=== PATIENT | female | born 1965 | race Caucasian/White ===

== ENCOUNTER 2022-09-06 09:03 | Outpatient (CLI) | payer BC, SELFPAY ==
[2022-09-06 14:37] LABS: Albumin* 4.4 g/dL (3.3-5.0)
[2022-09-06 14:38] LABS: Chloride* 107 mmol/L (96-114); Potassium* 4.4 mmol/L (3.6-5.1); Sodium* 142 mmol/L (135-149)
[2022-09-06 14:40] LABS: Carbon Dioxide* 30 mmol/L (20-32); Cholesterol* 213 mg/dL (90-199); Creatinine* 0.8 mg/dL (0.5-1.5); Estimated Glomerular Filt Rate 87 ml/min
[2022-09-06 14:41] LABS: Alanine Aminotransferase* 27 U/L (4-35); Alkaline Phosphatase* 53 U/L (40-150); Aspartate Amino Transferase* 25 U/L (12-35); Bilirubin Total* 0.4 mg/dL (0.1-1.5); Blood Urea Nitrogen* 20 mg/dL (7-30); Calcium* 9.2 mg/dL (8.4-10.6); Glucose* 93 mg/dL (60-115); HDL Cholesterol* 56 mg/dL (>=50); LDL Cholesterol Calculated 120 mg/dL (<100); Total Protein* 6.7 g/dL (6.0-8.3); Triglycerides* 184 mg/dL (40-149)
== END 2022-09-06 09:04 | disposition home or self-care (01) ==
PROVIDERS: PCP Physician Assistant Medical; Visit Provider Physician Assistant Medical
DX: Z01.419 Encounter for gynecological examination (general) (routine) without abnormal findings (principal); E03.9 Hypothyroidism, unspecified; E78.00 Pure hypercholesterolemia, unspecified; I10 Essential (primary) hypertension
CPT/HCPCS: 80053; 80061; 84443

== ENCOUNTER 2022-12-25 18:11 | Outpatient (CLI) | payer BC, SELFPAY ==
--- NOTE | 2022-12-25 18:30 | CRLHL7_ITS ---
For Patients: As a result of the Cures Act, medical imaging exams and procedure reports are released immediately into your electronic medical record. You may view this report before your referring provider. If you have questions, please contact your health care provider. BILATERAL SCREENING MAMMOGRAM WITH COMPUTER-AIDED DETECTION AND TOMOSYNTHESIS TECHNIQUE: CC and MLO views were obtained. These mammographic images have been obtained using full-field digital technique. These mammographic images were interpreted with the benefit of computer-aided detection. Breast tomosynthesis was used in this interpretation. COMPARISON FILM: 11/06/21, 07/29/20, 06/23/19. FINDINGS: There are scattered areas of fibroglandular density. IMPRESSION: There is no radiographic evidence for malignancy. ASSESSMENT: BI-RADS Category 2: Benign RECOMMENDATION: Routine screening mammogram in 1 year. A lay language report of this examination will be provided to the patient. LYN ARANA M.D. Diagnostic/Breast Radiologist [email or web address] Transcribed: 12/26/2022, 2:[address]/Dictated by: Lyn Arana MD @ 12/26/2022 8:18:00 AM (Electronically Signed)
== END 2022-12-25 18:12 | disposition home or self-care (01) ==
LOC: MAMMO 18:12
PROVIDERS: PCP Physician Assistant Medical; Visit Provider Physician Assistant Medical
DX: Z12.31 Encounter for screening mammogram for malignant neoplasm of breast (principal)
CPT/HCPCS: 77063; 77067

== ENCOUNTER 2023-08-27 07:52 | Outpatient (CLI) | payer BC, SELFPAY | END 2023-08-27 07:53 | disposition home or self-care (01) | PROVIDERS: PCP Physician Assistant Medical; Visit Provider Physician Assistant Medical | DX: Z00.00 Encounter for general adult medical examination without abnormal findings (principal); E03.9 Hypothyroidism, unspecified; I10 Essential (primary) hypertension; E78.00 Pure hypercholesterolemia, unspecified | CPT/HCPCS: 80053; 80061; 84443 ==

== ENCOUNTER 2023-12-26 15:56 | Outpatient (CLI) | payer BC, SELFPAY | END 2023-12-26 15:57 | disposition home or self-care (01) | LOC: FRMREF 15:57 | PROVIDERS: PCP Physician Assistant Medical; Visit Provider Physician Assistant Medical | DX: Z78.0 Asymptomatic menopausal state (principal) | CPT/HCPCS: 83001 ==

== ENCOUNTER 2023-12-27 14:41 | Outpatient (CLI) | payer BC, SELFPAY ==
--- NOTE | 2023-12-27 15:00 | MM_ITS ---
Patient: NEHAL ELLIOTT Facility:?[facility] Patient ID:?[id number] Site Patient ID:?[id number]. Site :?[id number] Study:?XRay-Breast Bilateral 3D W/CAD-12/27/2023 3:07:35 PM Ordering Physician:Ashia Ge Final Report: BILATERAL SCREENING MAMMOGRAM WITH COMPUTER-AIDED DETECTION AND TOMOSYNTHESIS TECHNIQUE: CC and MLO views were obtained. These mammographic images have been obtained using full-field digital technique. These mammographic images were interpreted with the benefit of computer-aided detection. Breast Tomosynthesis was used in this interpretation. COMPARISON FILM: 12/25/22, 11/06/21, 07/29/20. FINDINGS: There are scattered areas of fibroglandular density IMPRESSION: There is no radiographic evidence for malignancy. ASSESSMENT: BI-RADS Category 2: Benign RECOMMENDATION: Routine screening mammogram in 1 year. A lay language report of this examination will be provided to the patient. Ted Don M.D. Diagnostic Radiologist [email or web address] Transcribed: 1:26 p.mCris valdez/Dictated by: Ted Don MD @ 12/31/2023 12:43:00 PM Signed by:?Ted Don MD @12/31/2023 1:35:00 PM (Electronic Signature)
== END 2023-12-27 14:42 | disposition home or self-care (01) ==
LOC: MAMMO 14:41
PROVIDERS: PCP Physician Assistant Medical; Visit Provider Physician Assistant Medical
DX: Z12.31 Encounter for screening mammogram for malignant neoplasm of breast (principal)
CPT/HCPCS: 77063; 77067

== ENCOUNTER 2024-01-14 16:41 | Outpatient (CLI) | payer BC, SELFPAY ==
--- NOTE | 2024-01-14 17:00 | US_ITS ---
Patient: NEHAL ELLIOTT Facility:?[facility] Patient ID:?[id number] Site Patient ID:?[id number]. Site :?[id number] Study:?US-OB Pelvis TV pelvic-01/14/2024 6:15:37 PM Ordering Physician:?Yoli Lunsford Final Report: CLINICAL HISTORY: Missing IUD string TECHNIQUE: 2D kaur scale and color Doppler images were acquired of the pelvis using a transvaginal approach. FINDINGS: On transvaginal imaging, the myometrium has a diffusely heterogeneous echotexture with multiple fibroids. A large right posterior fibroid is present which measures 9.4 x 7.6 x 9.1 cm. Left anterior fibroid is present measuring 4.1 x 3.3 x 3.0 cm. Right posterior fibroid noted at the mid uterus measuring 4.2 x 2.2 x 3.1 cm. IUD appears to be present normally within the endometrial canal. The left ovary measures 2.2 x 1.2 x 1.1 cm in size and the right ovary measures 1.8 x 1.0 x 1.1 cm. The ovaries demonstrate normal arterial and venous blood flow on color Doppler analysis. There are no suspicious fluid collections within the cul-de-sac. IMPRESSION: IUD within the endometrial canal. Fibroid uterus. Dictated by Ted Don MD @ 01/15/2024 12:14:42 PM Signed by:?Ted Don MD @01/15/2024 12:14:42 PM (Electronic Signature)
== END 2024-01-14 16:42 | disposition home or self-care (01) ==
LOC: US 16:42
PROVIDERS: PCP Physician Assistant Medical; Visit Provider Obstetrics & Gynecology
DX: T83.2 Mechanical complication of graft of urinary organ (principal); D25.9 Leiomyoma of uterus, unspecified
CPT/HCPCS: 76830

== ENCOUNTER 2024-02-11 06:01 | Day surgery (SDC) | payer BC, SELFPAY ==
--- OUTSIDE RECORDS SUMMARY | 2024-02-11 06:03 | XMS_ITS | Continuity of Care Document ---
Author Name Unknown Organization [facility] Address [address] [address] [place] [address] Phone Care Team Providers Care Medical Records Director Name Role Phone Steve Carvalho MD Unavailable Unavailabl e Allergies, Adverse Reactions, Alerts Substance Reaction Status Criticality No Known allergies Medications Medication Instructions Dosage Effective Dates (start - stop) Status Comments hydrochlorothiazide 25 mg tablet take 1 Tablet by ORAL route every day 25 MG - Active Synthroid 112 mcg tablet take 1 tablet b y oral route every day 112 MCG - Active Zyrtec 10 mg Tab Take 1 tablet by mouth daily - Active Procedures Procedure Date Colonoscopy Flex; W/bx 1/mx Level Iv-surg Path Gross/micro 19 Advance Directives Directive Yes / No Effective Date File Name No Information Encounters Encounter Description Practice Location Reason(s) For Visit Diagnoses Date Provider Providers Copied on Encounter [facility] [employer] [facility], [address] [address], [place], [place], [address], [place] tel:[phone] [facility] No Information 4 Lucio Wilson. [address] [facility], [facility] [address], [place], [place], [address] , [place]. tel:[phone] [facility], [address] [address], [place], [address], [place] tel:[phone] [facility] Diarrhea, unspecified typePersonal history of colonic polypsLymphocytic colitis 9 Jovi Kramer. [address] [facility], [address], [place], [place], [address] , [place]. tel:[phone] [place]: [place], [address] [address] [place], [address]. tel:[phone] [facility], [address] [address], [place], [place], [address], [place] tel:[phone] [facility] Personal History Colon PolypsFamily Hx/Colonic PolypsPersonal History Colon PolypsFamily Hx/Colonic Polyps 7 Rojelio LUA Triny. [address] , [facility] [address], [place], [address], [place]. tel:[phone] [place]: [place], [address] [address] [place], [address]. tel:[phone] Family History Family Member Type Diagnosis Age At Onset Father Problem (finding) cancer of colon Payers Payer name Insurance type Covered constitution party ID Authoriza tieleanor(s) Preferred One Admin [facility] CI [id number] Social History Type Description Quantity Date Captured Comments Sex Female Smoking Status No Information Chief Complaint And Reason For Visit No Information Reason For Referral Reason For Referral No Information Plan Of Treatment Date Type Action Status Appointment Kristin Victoria BOOKED History Of Present Illness Encounter Date Complaint History Of Prese nt Illness No Information Functional Status Date Functional Assessmen t No Information Instructions Date Instruction Additional Infor mation No Information Assessments Type Assessment Date No Information Patient Care Teams Name Effective Dates (start - stop) Status Members No Information
--- OUTSIDE RECORDS SUMMARY | 2024-02-11 06:03 | XMS_ITS | Clinical Summary ---
Author Name Unknown Organization [facility] Address [place], [place] [address] Care Team Providers Care Mail Teller Name Role Phone Janet Ng MD Primary Care Provider [phone] Medications Medication Sig Dispensed Refills Start Date End Date Status amoxicillin-clavula kathya 875-125 mg tablet (AUGMENTIN) Take 1 tablet by mouth twice daily 56 tablet 12/05/2015 Active codeine-guaiFENesin (CHERATUSSIN AC) 10-100 mg/5 mL liquid Take 5-10 mL by mouth every 4-6 hours if needed for pain/cough. 240 mL 12/06/2015 Active bisacodyl (DULCOLAX) 5 mg tablet Take all 4 tablets at 12pm the day before your colonoscopy 4 tablet 12/07/2016 Active magnesium citrate (CITRATE OF MAG) 4 hours before your procedure drink the entire bottle of lemon magnesium citrate 296 mL 12/07/2016 Active polyethylene glycoL (MIRALAX) 17 gram/dose powder One day prior to the procedure mix 8.3oz of Miralax into 64oz of Gatorade. Beginning at 4pm, drink an 8oz glass every 15min until gone 255 g 12/07/2016 Active amoxicillin-clavula kathya 875-125 mg tablet (AUGMENTIN) Take 1 tablet by mouth two times a day for 28 days. 56 tablet 11/26/2017 Active lisinopriL (PRINIVIL; ZESTRIL) 20 mg tablet Take 1 tablet by mouth daily 90 tablet 3 09/24/2019 Active hydroCHLOROthiazide (HCTZ) 25 mg tablet Take 1 tablet by mouth once daily 90 tablet 3 09/24/2019 Active cyclobenzaprine (FLEXERIL) 10 mg tablet Take 1 tablet (10 mg) by oral route at bedtime NEEDED FOR neck stiffness 30 tablet 5 11/27/2019 Active hydroCHLOROthiazide (HCTZ) 25 mg tablet TAKE 1 TABLET BY MOUTH ONCE DAILY 90 tablet 3 08/30/2020 Active lisinopriL (PRINIVIL; ZESTRIL) 20 mg tablet TAKE 1 TABLET BY MOUTH DAILY 90 tablet 3 08/30/2020 Active levothyroxine (SYNTHROID) 112 mcg tablet Take 1 tablet daily 90 tablet 3 08/30/2020 Active hydroCHLOROthiazide 12.5 mg tablet Take 1 tablet (12.5 MG) DAILY 90 Tablet 3 09/05/2021 Active lisinopriL (PRINIVIL; ZESTRIL) 20 mg tablet Take 1 tablet (20 MG) DAILY 90 Tablet 3 09/05/2021 Active hydroCHLOROthiazide (HCTZ) 25 mg tablet Take 1 Tablet (25 mg) by mouth once daily. 90 Tablet 3 09/06/2021 Active levothyroxine (SYNTHROID) 112 mcg tablet Take 1 Tablet (112 mcg) by mouth once daily. 90 Tablet 3 09/06/2021 Active Encounters Date Type Department Care Team Description 01/21/2024 Lab Requisition [facility] [phone] Yoli Lunsford MD 12/27/2023 Lab Requisition [facility] [phone] Ashia Sawyer, PARavinderC from Last 3 Months Immunizations Name Administration Dates Next Due COVID-19 vaccine ([employer] 30mcg/0.3mL) COLTON Anders 10/17/2020,09/26/2020 Family History Medical History Relation Name Comments Cancer-breast Other great grandmother 90+ Cancer-ovarian No Family History Relation Name Status Comments Other great grandmother Social History Tobacco Use Types Packs/Day Years Used Date Smoking Tobacco: Never Assessed Social Connections Answer Date Recorded Frequency of Communication with Friends and Fami ly Not on file 09/30/2021 Financial Resource Strain Answer Date R ecorded Difficulty of Paying Living Expenses Not on file 09/30/2021 Difficulty of Paying Living Expenses Not on file 09/30/2021 Sex and Gender Information Value Date Recorded Sex Assigned at Not on file Gender Identity Not on file Sexual Orientation Not on file Obstetrics History Plan of Treatment Not on file Procedures Procedure Name Priority Date/Time Associated Diagnosis Comments LAB TRACKING EVENT Routine 01/20/2024 1: 30 PM CDT PATH TISSUE EXAM Routine 01/20/2024 1:30 PM CDT LAB TRACKING EVENT Routine 12/26/2023 3: 45 PM CDT VP COMPLIANCE THIN PREP PAP SCREEN IMAGED Routine 12/26/2023 3:45 PM CDT HPV THIN PREP Routine 12/26/2023 3:45 PM CDT from Last 3 Months Results * LAB TRACKING EVENT (01/20/2024 1:30 PM CDT) Only the most recent of2 resultswithin the time period is included. Other (Other) Client Collect / Unknown 01/20/2024 1:30 PM CDT 01/21/2024 3:25 PM CDT Yoli Lunsford MD LAB BILL ONLY [facility] [address] [place] [address], * PATH TISSUE EXAM (01/20/2024 1:30 PM CDT) Case Report Pathology Report ?Case: [id number] ? Authorizing Provider: ??Yoli Lunsford MD ??Collected: ? 01/20/2024 1330 ? Ordering Location: ? [facility] ?Received: ?01/21/2024 1621 ? Pathologist: ? Radha Dorsey MD ? Specimen: ?Endometrial Biopsy ? 01/24/2024 9:19 AM [email or web address] Final Diagnosis A) ENDOMETRIUM, BIOPSY: 1. Inactive endometrium with reactive changes and chronic endometritis, consistent with the presence of an intrauterine device 2. Areas of stromal collagenization are also favored to represent IUD effect 3. Negative for hyperplasia, atypia, and malignancy in this sample 4. See comment 01/24/2024 9:19 AM [facility] Comment The biopsy demonstrates fragments of inactive endometrial tissue with stromal and glandular reactive changes as well as chronic endometritis, consistent with reaction to an IUD. ??Alternatively, chronic endometritis may be due to a variety of causes, including infections, pelvic radiotherapy, submucosal leiomyomas, or endometrial polyps. Despite the wide spectrum of etiologies, more than a third of cases of chronic endometritis are idiopathic. This case demonstrates areas of unusual stromal collagenization associated with stromal progestin effect. ??This is favored to also represent a chronic inflammatory response to a longstanding IUD, but such changes can be seen in the context of an old placental implantation site/retained mummified placental tissue or occasionally in infarcted endometrial polyps. ??Please correlate with hysteroscopic impression to determine if further sampling is needed. Case seen in consultation with Dr. Ugarte. 01/24/2024 9:19 AM [email or web address] Clinical Information Fibroid uterus by ultrasound Hysteroscopy for IUD removal. IUD not removed - polyps seen. 01/24/2024 9:19 AM CDT [facility] Gross Description A) Received in formalin, labeled with the patient's name and date of , is a 3.0 x 1.5 x 0.3 cm aggregate of pink-gore mucosa admixed with clotted blood and mucous. The specimen is entirely submitted in 1 cassette. TLF 01/21/2024 01/24/2024 9:19 AM CDT [facility] Microscopic Description The final diagnosis is based on microscopic examination of appropriate sections of all specimens. 01/24/2024 9:19 AM CDT [facility] Additional Information Interpreted at [facility] - [address] [place] [address] 01/24/2024 9:19 AM CDT [facility] Other (Endometrial Biopsy) 01/20/2024 1:30 PM CDT 01/21/2024 4:21 PM CDT Yoli Lunsford MD PATHOLOGY/CYTOLO GY [facility] [address] [place] [address], * VP COMPLIANCE THIN PREP PAP SCREEN IMAGED (12/26/2023 3:45 PM CDT) Case Report Gynecologic Cytology Report ? Case: [id number] ? Authorizing Provider: ??Ashia Sawyer PA-C ? Collected: ? 12/26/2023 1545 ? Ordering Location: ? [facility] ?Received: ?12/30/2023 0918 ? First Screen: ?Juliann Ellison ? Rescreen: ?Nicole James ? Specimen: ?VP COMPLIANCE ThinPrep Vial Screening, Cervical/Vaginal ? 01/08/2024 2:29 PM CDT [facility] INTERPRETATION/ RESULT NEGATIVE FOR INTRAEPITHELIAL LESION OR MALIGNANCY (NIL) (none) 01/08/2024 2:29 PM CDT [facility] IMEN ADEQUACY Satisfactory for evaluation No endocervical component seen 01/08/2024 2:29 PM CDT [facility] HPV REQUEST HPV and PAP 01/08/2024 2:29 PM CDT [facility] Last Pap Date 09/24/2019 01/08/2024 2:29 PM CDT [facility] Last Pap Result NIL 2:29 PM CDT [facility] Abnormal Pap or [place] Bx in last 5 years No 01/08/2024 2:29 PM CDT [facility] Menstrual Status Hormonally Suppressed 01/08/2024 2:29 PM CDT [facility] Comment:IUD [place] Bx Done Today No 01/08/2024 2:29 PM CDT [facility] Additional Information 01/08/2024 2:29 PM CDT [facility] Comment: Interpreted at [facility] - [address] [facility] [address], [place] [address] Automated Review Successful 01/08/2024 2:29 PM CDT [facility] Comment:Specimen processed s uccessfully by automated parts counter associate device, nap- Naturally Attached ParentsPrep Imaging System, [employer] ANCILLARY TESTING VP COMPLIANCE HPV Ordered, Please see separate report 01/08/2024 2:29 PM CDT [facility] Note The pap test is a screening technique, not a diagnostic procedure. It is used primarily to screen for squamous cancers and precursor lesions. Published studies have shown that it is subject to both false negative and false positive results. The pap test should not be used as the sole means to diagnose or exclude pre-malignant and malignant lesions. 01/08/2024 2:29 PM CDT [facility] Other (Cervical/Vagina l) 12/26/2023 3:45 PM CDT 12/30/2023 9:18 AM CDT Ashia Sawyer PA-C PATHOLOGY/CYTOLOGY [facility] [address] [place] [address], * HPV HIGH RISK (12/26/2023 3:45 PM CDT) TYPE 16 Negative Negative 01/01/2024 11:09 AM CDT [facility] TYPE 18 Negative Negative 01/01/2024 11:09 AM CDT [facility] OTHER HIGH RISK TYPES Negative Negative 01/01/2024 11:09 AM CDT [facility] Other (Cervical/Vagina l) 12/26/2023 3:45 PM CDT 12/30/2023 9:18 AM CDT Narrative [facility] - 01/01/2024 11:09 AM CDT HPV types 16, 18, 31, 33, 35, 39, 45, 51, 52, 56, 58, 59, 66 and 68 DNA were undetectable or below the pre-set threshold. Methodology: Alisa Petra 4800 HPV Test Ashia Sawyer PA-C MICROBIOLOGY [facility] [address] [place] [address], from Last 3 Months Care Teams Mail Teller Relationship Specialty [place] [address] [address] [place], [place] [phone] PCP - General 06/05/07
--- OUTSIDE RECORDS SUMMARY | 2024-02-11 06:03 | XMS_ITS | Continuity of Care Document ---
Author Name Unknown Organization [facility] Address [address] [address] [place] [address] Phone Care Team Providers Care Clinic Lpn Name Role Phone Steve Carvalho MD Unavailable [...] Diagnoses Date Provider Providers Copied on Encounter [facility], [address] [address], [place], [place], [address], [place] tel:[phone] [facility] No Information 4 Lucio Wilson. [address] [facility], [facility] [address], [place], [place], [address] , [place]. tel:[phone] [facility], [address] [address], [place], [address], [place] tel:[phone] [facility] Diarrhea, unspecified typePersonal history of colonic polypsLymphocytic colitis 9 Jovi Kramer. [address] [facility], [address], [place], [place], [address] , [place]. tel:[phone] [place]: [place], [address] [facility] [place], [address]. tel:[phone] [facility], [address] [address], [place], [place], [address], [place] tel:[phone] [facility] Personal History Colon PolypsFamily Hx/Colonic PolypsPersonal History Colon PolypsFamily Hx/Colonic Polyps 7 Rojelio LUA Triny. [address] , [facility] [address], [place], [address], [place]. tel:[phone] [place]: [place], [address] [address] [place], [address]. tel:[phone] Family History Family Member Type Diagnosis Age At Onset Father Problem (finding) cancer of colon Payers Payer name Insurance type Covered alliance party ID Authoriza tieleanor(s) Preferred One Admin [facility] CI [id number] Social History Type Description Quantity Date Captured [...]
[2024-02-11] MEDS: LACTATED RINGERS 1000 ML 1,000 ML 100 ML IV (06:10)
[2024-02-11 06:25] VITALS: BMI 38.5
[2024-02-11 06:34] VITALS: BP 132/77; PULSE 75; RESP 16; TEMP 36.7; O2SAT 94
[2024-02-11 06:37] LABS: Ur HCG Qualitative* Negative (Negative)
[2024-02-11] MEDS: SODIUM CHLORIDE 0.9 % (FLUSH) 10 ML SYRINGE IVF (06:44)
[2024-02-11 06:49] LABS: Hemoglobin* 12.3 gm/dL (12.0-16.0)
--- NOTE | 2024-02-11 07:10 | W.PM.H&PU_ITS ---
History & Physical Update History & Physical Update H&P Reviewed and patient assessed: No changes noted H&P Updates: Kristin is seen in pre-op prior to hysteroscopy, IUD removal and dilation and curettage. She is s/p pre-op exam with Ashia Sawyer on 02/06/24. No interval health updates. Reviewed benefit of IUD removal and endometrial sampling today. Risks include bleeding, infection, damage to surrounding structures and medical complications of surgery/anesthesia reviewed. All questions answered. Written consent re- signed.
--- NOTE | 2024-02-11 07:15 | P.GYNPRC_ITS ---
Procedure Note Time Seen by Provider: 07:15 Date of procedure: 02/11/24 Will [facility] bill your pro fee for this procedure?: Yes Pre-op diagnosis: Lost IUD strings Fibroid uterus Suspected endometrial polyp Post-op diagnosis: Same as above Procedure: Hysteroscopy, IUD removal, dilation and curettage, polypectomy Anesthesia: MAC Complications: None Surgeon: Sal Lunsford MD Estimated blood loss (mL): 5 IV fluids (mL): 800 Urine Output (mL): 125 Pathology: specimen obtained, sent to pathology Condition: stable Disposition: same day Findings: Unremarkable external genital exam Endocervical polyp Largely inactive appearing endometrium, sessile polypoid tissue on posterior wall Unremarkable bilateral tubal ostia IUD with lost strings Procedure Description: Procedure in detail: Patient was taken to the operating room with IV running. She was positioned in dorsal lithotomy position with her legs fully supported in Yellofin stirrups. Monitored anesthesia care was administered. She was prepped and draped in the usual sterile fashion. Exam under anesthesia was performed for the above-noted findings. Speculum was inserted. Cervix visualized and grasped along the anterior lip with a single-tooth tenaculum. Paracervical block was performed with a total of 10 mL 0.5% bupivacaine. Cervix was gently dilated with os finder to accommodate the TRUCLEAR hysteroscope. This was assembled with saline inflow and outflow in place. The line was flushed of bubbles. The hysteroscope was advanced through the cervix, where the junction between endocervical canal and endometrial cavity was noted to be sharply anteverted. Small false passage was noted posteriorly, potentially from os finder to dilate. Hysteroscope was gently advanced into anteverted uterine cavity, position likely altered to known fibroid uterus. IUD and strings were readily apparent, where strings hysteroscopic grasper was utilized to grab strings and the hysteroscope and IUD were removed together and intact. Hysteroscope was then reinserted and carefully advanced into the endometrial cavity. The above findings were noted, where the most obvious focal anomaly was a 6mm endocervical polyp. This was noted to be branching in appearance, likely representing the lesion previously seen on office hysteroscopy. Soft tissue Truclear morcellator was advanced through hysteroscope, window lock was performed. Polypectomy was performed without difficulty under direct visualization. The posterior uterine wall was noted to have focal sessile polypoid like tissue, resected as well. Global sampling was then performed with Truclear. The hysteroscope and morcellator were then removed from the uterus. Tenaculum was removed from the anterior lip of cervix. Hemostasis was noted with gentle pressure and silver nitrate. Patient tolerated procedure well. She was taken to recovery area in stable condition. Surgical debrief performed. EBL 5mL, fluid deficit 300mL, UOP 125mL, IVF 800mL, specimen is endometrial curettings.
[2024-02-11] MEDS: BUPIVACAINE 0.5% 30 ML INJECTION (07:50)
[2024-02-11] MEDS: SILVER NITRATE APPLICATOR 1 EACH STICK..EA. TOPICAL (07:50)
[2024-02-11 08:05] VITALS: BP 115/72; PULSE 70; RESP 16; TEMP 36.5; O2SAT 92
--- NOTE | 2024-02-11 08:11 | W.ANESCHARGE ---
Anesthesia Charges Start Date/Time Anesthesia Start Date: 02/11/24 Anesthesia Start Time: 07:21 Stop Date/Time Anesthesia Stop Date: 02/11/24 Anesthesia Stop Time: 08:07
[2024-02-11 08:15] VITALS: BP 122/74; PULSE 70; RESP 16; O2SAT 92
[2024-02-11 08:30] VITALS: BP 106/71; PULSE 72; RESP 16; O2SAT 96
[2024-02-11 08:45] VITALS: BP 110/77; PULSE 74; RESP 16; O2SAT 96
[2024-02-11 09:00] VITALS: BP 112/80; PULSE 72; RESP 16; O2SAT 96
--- NOTE | 2024-02-11 10:16 | W.ANESCHARGE ---
Anesthesia Charges Start Date/Time Anesthesia Start Date: 02/11/24 Anesthesia Start Time: 07:21 Stop Date/Time Anesthesia Stop Date: 02/11/24 Anesthesia Stop Time: 08:07
== END 2024-02-11 09:15 | disposition home or self-care (01) ==
LOC: OR 06:02
PROVIDERS: PCP Physician Assistant Medical; Visit Provider Obstetrics & Gynecology
PROC: 0UDB8ZZ Extraction of Endometrium, Via Natural or Artificial Opening Endoscopic (ICD-10-PCS; CPT 58558; principal; 2024-02-11 07:15)
DX: D25.0 Submucous leiomyoma of uterus (principal); T83.32XA Displacement of intrauterine contraceptive device, initial encounter
CPT/HCPCS: 58558; 58562; 00952; 36415; 81025; 85018; 86850; 86900; 86901; 88305; A9270; J0665; J1100; J1885; J2250; J2405; J2704; J3010; J3490; J7120

== ENCOUNTER 2024-03-19 16:15 | Outpatient (RCR) | payer BC, SELFPAY | END 2024-07-17 23:59 | disposition home or self-care (01) | PROVIDERS: PCP Physician Assistant Medical; Visit Provider Orthopaedic Surgery Sports Medicine | DX: M76.821 Posterior tibial tendinitis, right leg (principal); M25.571 Pain in right ankle and joints of right foot; Z51.89 Encounter for other specified aftercare | CPT/HCPCS: 97110; 97140; 97161 ==

== ENCOUNTER 2024-07-23 16:37 | Outpatient (CLI) | payer BC, SELFPAY ==
--- OUTSIDE RECORDS SUMMARY | 2024-07-23 16:39 | XMS_ITS | Clinical Summary ---
Author Organization [facility] Address [place], [place] [address] Care Team Providers Care Scrum Product Owner Name Role Phone Janet Ng MD Primary Care Provider + [phone] Medications Medication Sig Dispensed Refills Start Date [...] once daily. 90 Tablet 3 09/06/2021 Active Immunizations Name Administration Dates Next Due COVID-19 vaccine (Nomios 30mcg/0.3mL) COLTON Anders 10/17/2020,09/26/2020 Family History Medical [...] History Plan of Treatment Not on file Care Teams Scrum Product Owner Relationship Specialty [place] [id number] [address] [place], [place] [phone] PCP - General 06/05/07
--- NOTE | 2024-07-23 17:00 | CRLHL7_ITS ---
For Patients: As a result of the Century Cures Act, medical imaging exams and procedure reports are released immediately into your electronic medical record. You may view this report before your referring provider. If you have questions, please contact your health care provider. INDICATION: leiomyoma of uterus COMPARISON: 01/14/2024 TECHNIQUE: 2D kaur scale and color Doppler images were acquired of the pelvis using a transabdominal and transvaginal approach. FINDINGS: Left-sided exophytic fibroid measures 4.2 x 3.7 x 4.1 cm. Calcified fibroid is present within the left uterine fundus measuring 3.0 x 2.3 x 2.2 cm. Large midline fibroid measures 9.1 x 9.2 x 8.4 cm, previously measuring 9.4 x 7.6 x 9.1 cm. Uterus measures 13.3 cm in length by 10.1 cm in AP diameter by 10.9 cm in transverse dimension. The endometrium is obscured. The ovaries are not visualized. There are no suspicious fluid collections within the cul-de-sac. IMPRESSION: Multiple uterine fibroids measuring up to 9.2 cm. Dictated by Ted Don MD @ 07/24/2024 3:50:12 PM (Electronically Signed)
== END 2024-07-23 16:38 | disposition home or self-care (01) ==
LOC: US 16:38
PROVIDERS: PCP Physician Assistant Medical; Visit Provider Obstetrics & Gynecology
DX: D25.9 Leiomyoma of uterus, unspecified (principal)
CPT/HCPCS: 76830; 76856

== ENCOUNTER 2024-09-01 10:08 | Outpatient (CLI) | payer BC, SELFPAY | END 2024-09-01 10:09 | disposition home or self-care (01) | PROVIDERS: PCP Physician Assistant Medical; Visit Provider Physician Assistant Medical | DX: E03.9 Hypothyroidism, unspecified (principal); I10 Essential (primary) hypertension; E78.00 Pure hypercholesterolemia, unspecified | CPT/HCPCS: 80053; 80061; 84443 ==

== ENCOUNTER 2025-03-23 15:15 | Outpatient (CLI) | payer BC, SELFPAY ==
--- NOTE | 2025-03-23 15:40 | MM_ITS ---
Patient: NEHAL ELLIOTT Facility:?[facility] Patient ID:?[id number] Site Patient ID:?[id number]. Site :?[id number] Study:?XRay-Breast 3D Vick SCREENING-03/23/2025 4:05:19 PM Ordering Physician:Luma Ang Final Report: INDICATION: BILATERAL SCREENING MAMMOGRAM, ASYMPTOMATIC 60 Y/O FEMALE COMPARISON: 12/27/2023, 12/25/2022, 11/06/2021 TECHNIQUE: Digital mammogram in CC and MLO projections including computer-aided detection (CAD) and tomosynthesis. BREAST COMPOSITION: There are scattered areas of fibroglandular density. FINDINGS: No suspicious findings. ASSESSMENT: BI-RADS 2 Benign RECOMMENDATION: Annual screening mammogram. A lay language report of this examination will be provided to the patient. Dictated by: Ted Don MD @ 03/25/2025 10:14:15 Signed by:?Ted Don MD @03/25/2025 10:14:15 AM (Electronic Signature)
--- OUTSIDE RECORDS SUMMARY | 2025-03-24 00:48 | XMS_ITS | Clinical Summary ---
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 240 mL 12/06/2015 3:48 PM SHALE PROCESSING TECHNICIAN 6 Active bisacodyl (DULCOLAX) 5 mg tablet Take all 4 tablets at 12pm the day before your colonoscopy 4 tablet 7 Active magnesium citrate (CITRATE OF MAG) 4 hours before your procedure drink the entire bottle of lemon magnesium citrate 296 mL 7 Active polyethylene glycoL (MIRALAX) 17 gram/dose powder One day prior to the procedure mix 8.3oz of Miralax into 64oz of Gatorade. Beginning at 4pm, drink an 8oz glass every 15min until gone 255 g 7 Active amoxicillin-cla vulanate 875-125 mg tablet (AUGMENTIN) Take 1 tablet by mouth two times a day for 28 days. 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 0 Active hydroCHLOROthia zide (HCTZ) 25 mg tablet TAKE 1 TABLET BY MOUTH ONCE DAILY 90 tablet 3 05/03/2021 1:34 PM CDT 0 Active lisinopriL (PRINIVIL; ZESTRIL) 20 mg tablet TAKE 1 TABLET BY MOUTH DAILY 90 tablet 3 05/03/2021 1:34 PM CDT 0 Active levothyroxine (SYNTHROID) 112 mcg tablet Take 1 tablet daily 90 tablet 3 05/03/2021 1:34 PM CDT 0 Active hydroCHLOROthia zide 12.5 mg tablet Take 1 tablet (12.5 MG) DAILY 90 Tablet 3 06/13/2022 5:31 PM CDT 1 Active lisinopriL (PRINIVIL; ZESTRIL) 20 mg tablet Take 1 tablet (20 MG) DAILY 90 Tablet 3 06/13/2022 5:31 PM CDT 1 Active hydroCHLOROthia zide (HCTZ) 25 mg tablet Take 1 Tablet (25 mg) by mouth once daily. 90 Tablet 3 06/13/2022 5:31 PM CDT 1 Active levothyroxine (SYNTHROID) 112 mcg tablet Take 1 Tablet (112 mcg) by mouth once daily. 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
== END 2025-03-23 15:16 | disposition home or self-care (01) ==
LOC: MAMMO 15:16
PROVIDERS: PCP Physician Assistant Medical; Visit Provider Physician Assistant Medical
DX: Z12.31 Encounter for screening mammogram for malignant neoplasm of breast (principal)
CPT/HCPCS: 77063; 77067

== ENCOUNTER 2025-09-02 07:32 | Outpatient (CLI) | payer BC, SELFPAY | END 2025-09-02 07:33 | disposition home or self-care (01) | PROVIDERS: PCP Physician Assistant Medical; Visit Provider Physician Assistant Medical | DX: I10 Essential (primary) hypertension (principal); E78.00 Pure hypercholesterolemia, unspecified; E03.9 Hypothyroidism, unspecified | CPT/HCPCS: 80053; 80061; 84443 ==